=== PATIENT | male | born 1980 | race Caucasian/White ===

== ENCOUNTER 2018-03-08 19:29 | Emergency (ER) | payer MEDICARE, OTHER ==
[2018-03-08 20:05] VITALS: BP 140/90; PULSE 109; RESP 18; TEMP 98.3; O2SAT 96
[2018-03-08] MEDS ORDERED: SODIUM CHLORIDE 0.9% FLUSH 10 ML SOL IV PRN (20:33)
[2018-03-08 20:38] LABS: BASOPHILS % (AUTO) 0 % (0-3); EOSINOPHILS % (AUTO) 3 % (0-9); HEMATOCRIT 40 % (39-53); HEMOGLOBIN 12.6 gm/dl (13.5-17.7); LYMPHOCYTES % (AUTO) 17.2 % (10-50); MEAN CORPUSCULAR HEMOGLOBIN 26.3 pg (27.0-32.0); MEAN CORPUSCULAR HGB CONC 31.7 gm/dl (32.0-36.0); MEAN CORPUSCULAR VOLUME 83 fL (80-100); NEUTROPHILS % (AUTO) 73.9 % (37-80)
[2018-03-08 20:54] LABS: BILIRUBIN,TOTAL 0.3 mg/dl (0.2-1.0); CALCIUM 8.5 mg/dl (8.5-10.1); CREATININE 1.05 mg/dl (0.80-1.30); POTASSIUM 3.8 mMol/L (3.5-5.1); TOTAL PROTEIN 8.8 gm/dl (6.4-8.2)
[2018-03-08 21:01] LABS: CARBON DIOXIDE 31.5 mEq/L (21-32)
== END 2018-03-08 21:36 | disposition home or self-care (01) | DRG 379 ==
LOC: ED 19:29
DX: K62.5 Hemorrhage of anus and rectum (principal)
CPT/HCPCS: 36415; 80053; 85025; 99282